=== PATIENT | female | born 1940 | race Caucasian/White ===

== ENCOUNTER 2016-07-23 12:36 | Inpatient (IN) | payer MEDICARE ==
[~2016-07-23] VITALS: Ht 167.6 cm; Wt 67.2 kg
[~2016-07-23 12:36] MED LIST: A-CILLIN500 MG; ACTONEL PO; ACTONEL35 MG PO; ACTOS30 MG PO; ACTOS45 MG PO; ACUVAIL 0.4 ML0.4 ML OPH; ATENOLOL; ATIVAN1 MG PO; DUONEB 3 MG/3 ML3 M1 INH; FOSINOPRIL10 MG PO; HUMALOG100 U/ML SC; HYDROCHLOROTHIA25 MG PO; KLORVESS,K40 MEQ/30 PO; LANTUS100 U/ML SC; LISINOPR; LISINOPRIL20 MG PO; LOPRESSOR25 MG PO; LORAZE; MAG-OX 400400 MG PO; MELLARIL10 MG PO; METFORMIN; METFORMIN1000 MG PO; NEUTRA-PHOS F1.25 GM PO; OCUFLOX 5 ML5 M1 OP; PROTONIX40 MG PO; SIMVASTATIN40 MG; SIMVASTATIN40 MG PO; SIMVASTATIN80 MG PO; UNICOMPLEX1 CAP; VICODIN 500 MG-1 TAB PO; [UNRECOGNIZED DRUG - CODE]
[2016-07-23 12:41] VITALS: BP 135/98
[2016-07-23 13:50] LABS: BASO % 0.2 % (0.0-1.0); EOS % 0.2 % (1.0-4.0); HEMATOCRIT 38.7 % (37.0-47.0); HEMOGLOBIN 12.8 g/dl (12.0-16.0); IG # 0.1 10*3/uL (0.0-0.1); LYMPH # 1.2 10*3/uL (1.3-4.4); LYMPH % 11.2 % (27.0-41.0); MEAN CELL VOLUME 91.5 fl (81.0-99.0); MEAN CORPUSCULAR HGB 30.3 pg (27.0-31.0); MEAN CORPUSCULAR HGB CONC 33.1 g/dl (33.0-37.0); MEAN PLATELET VOLUME 10.1 fl (9.6-12.3); MONO % 9.4 % (3.0-9.0); NEUT # 8.4 10*3/uL (2.3-7.9); NEUT % 78.5 % (47.0-73.0); PLATELET COUNT AUTOMATED 161 10*3/uL (130-400); RED BLOOD COUNT 4.23 10*6/uL (4.10-5.10); WHITE BLOOD COUNT 10.7 10*3/uL (4.8-10.8)
[2016-07-23 13:58] LABS: PROTHROMBIN TIME 10.6 SECONDS (9.0-12.4)
[2016-07-23 14:07] LABS: ALBUMIN 3.4 gm/dl (3.1-4.5); ALKALINE PHOSPHATASE 81 U/L (45-117); BILIRUBIN, TOTAL 0.9 mg/dl (0.2-1.0); BUN 14 mg/dl (7-24); CARBON DIOXIDE 26 mmol/L (21-32); CHLORIDE 96 mmol/L (98-107); EST GLOM FILT AFRICAN AMERICAN > 60 ml/min; GLUCOSE 207 mg/dL (65-99); MAGNESIUM 1.5 mg/dL (1.5-2.1); POTASSIUM 3.9 mmol/L (3.5-5.1); SGOT/AST 13 IU/L (3-35); SGPT/ALT 18 U/L (12-78); SODIUM 134 mmol/L (136-145); TOTAL PROTEIN 7.9 gm/dL (6.4-8.2)
[2016-07-23 14:08] LABS: TROPONIN I < 0.015 ng/ml (<0.5)
[2016-07-23 16:00] VITALS: BP 154/65
[2016-07-23 16:09] LABS: BILIRUBIN NEGATIVE (NEGATIVE); BLOOD 1+ (NEGATIVE); CLARITY CLOUDY (CLEAR); COLOR YELLOW (YELLOW); GLUCOSE 3+ (NEGATIVE); KETONE TRACE (NEGATIVE); LEUKO ESTERASE 2+ (NEGATIVE); NITRITE POSITIVE (NEGATIVE); PROTEIN TRACE (NEGATIVE); UROBILINOGEN 0.2 E.U./dl (0.2-1.0)
[2016-07-23 16:26] LABS: WBC TNTC wbc/hpf (0-5)
[2016-07-23 16:27] LABS: BACTERIA 2+; URINE REFLEX COMMENT YES (NO)
[2016-07-23 16:40] VITALS: BP 154/65
[2016-07-23] MEDS ORDERED: MELLARIL10 MG PO (17:21)
[2016-07-23 18:24] LABS: CKMB 0.5 ng/ml (0.5-3.6); CPK 51 U/L (26-192); TROPONIN I < 0.015 ng/ml (<0.5)
[2016-07-23 20:00] VITALS: BP 159/58
[2016-07-24] VITALS: BP 160/66
[2016-07-24 00:52] LABS: CKMB 0.7 ng/ml (0.5-3.6); CPK 42 U/L (26-192); TROPONIN I < 0.015 ng/ml (<0.5)
[2016-07-24 06:14] LABS: BASO % 0.2 % (0.0-1.0); EOS # 0.1 10*3/uL (0.0-0.4); EOS % 0.6 % (1.0-4.0); HEMATOCRIT 36.1 % (37.0-47.0); IG # 0.1 10*3/uL (0.0-0.1); LYMPH # 1.7 10*3/uL (1.3-4.4); LYMPH % 18.8 % (27.0-41.0); MEAN CELL VOLUME 90.5 fl (81.0-99.0); MEAN CORPUSCULAR HGB 30.1 pg (27.0-31.0); MEAN CORPUSCULAR HGB CONC 33.2 g/dl (33.0-37.0); MEAN PLATELET VOLUME 10.1 fl (9.6-12.3); MONO # 0.8 10*3/uL (0.1-1.0); MONO % 9.1 % (3.0-9.0); NEUT # 6.3 10*3/uL (2.3-7.9); NEUT % 70.7 % (47.0-73.0); PLATELET COUNT AUTOMATED 173 10*3/uL (130-400); RED BLOOD COUNT 3.99 10*6/uL (4.10-5.10); WHITE BLOOD COUNT 8.9 10*3/uL (4.8-10.8)
[2016-07-24 06:26] LABS: CKMB < 0.5 ng/ml (0.5-3.6); CPK 48 U/L (26-192); TROPONIN I < 0.015 ng/ml (<0.5)
[2016-07-24 06:39] LABS: PROTHROMBIN TIME 10.5 SECONDS (9.0-12.4)
[2016-07-24 06:53] LABS: ALKALINE PHOSPHATASE 68 U/L (45-117); BILIRUBIN, TOTAL 0.8 mg/dl (0.2-1.0); BUN 12 mg/dl (7-24); CARBON DIOXIDE 26 mmol/L (21-32); CHLORIDE 101 mmol/L (98-107); EST GLOM FILT AFRICAN AMERICAN > 60 ml/min; GLUCOSE 174 mg/dL (65-99); MAGNESIUM 1.6 mg/dL (1.5-2.1); PHOSPHOROUS 1.9 mg/dL (2.5-4.9); POTASSIUM 3.8 mmol/L (3.5-5.1); SGOT/AST 13 IU/L (3-35); SGPT/ALT 16 U/L (12-78); SODIUM 136 mmol/L (136-145)
[2016-07-24 07:29] LABS: VITAMIN D, 25-HYDROXY 20.8 ng/mL (30-100)
[2016-07-24 07:33] LABS: FOLIC ACID > 24.00 ng/mL (>5.38)
[2016-07-24 08:00] VITALS: BP 150/66
[2016-07-24 12:00] VITALS: BP 110/44
[2016-07-24 16:00] VITALS: BP 130/62
[2016-07-24 20:00] VITALS: BP 137/55
[2016-07-25] VITALS: BP 121/53
[2016-07-25 08:00] VITALS: BP 156/59
[2016-07-25 12:00] VITALS: BP 150/60
[2016-07-25] MEDS ORDERED: B121000 MCG/1 IM (15:19)
[2016-07-25] MEDS ORDERED: VITAMIN D50000 I3 PO (15:19)
[2016-07-25] MEDS ORDERED: CIPRO500 MG PO (15:21)
== END 2016-07-25 16:57 | disposition other institution (70) | DRG 638 ==
LOC: ED 12:36 → EDHOLD 15:40 → 4E 15:40
PROVIDERS: Family Medicine; Student in an Organized Health Care Education/Training Program
DX: E11.65 Type 2 diabetes mellitus with hyperglycemia (principal); N39.0 Urinary tract infection, site not specified; E44.0 Moderate protein-calorie malnutrition; E87.8 Other disorders of electrolyte and fluid balance, not elsewhere classified; E87.1 Hypo-osmolality and hyponatremia; I10 Essential (primary) hypertension; R00.0 Tachycardia, unspecified; E78.5 Hyperlipidemia, unspecified; F41.9 Anxiety disorder, unspecified; Z79.4 Long term (current) use of insulin; Z79.899 Other long term (current) drug therapy; Z90.710 Acquired absence of both cervix and uterus; Z90.5 Acquired absence of kidney; Z82.49 Family history of ischemic heart disease and other diseases of the circulatory system; Z80.9 Family history of malignant neoplasm, unspecified; Z83.6 Family history of other diseases of the respiratory system

== ENCOUNTER 2017-06-05 18:17 | Emergency (ER) | payer MEDICARE ==
[~2017-06-05] VITALS: Wt 65.8 kg
[~2017-06-05 18:17] MED LIST changes: +B121000 MCG/1 IM; +CIPRO500 MG PO; +VITAMIN D50000 I3 PO
[2017-06-05] MEDS ORDERED: CEFADROXIL500 M1 PO (20:13)
== END 2017-06-05 20:22 | disposition home or self-care (01) ==
LOC: ED 18:17
DX: S01.03XA Puncture wound without foreign body of scalp, initial encounter (principal); Z79.4 Long term (current) use of insulin; Z79.899 Other long term (current) drug therapy; Z90.710 Acquired absence of both cervix and uterus; W22.8XXA Striking against or struck by other objects, initial encounter; Y93.01 Activity, walking, marching and hiking; Y92.89 Other specified places as the place of occurrence of the external cause; Y99.8 Other external cause status

== ENCOUNTER → 2017-06-07 | Outpatient (CLI) | payer MEDICARE ==
[~2017-06-07] MED LIST changes: +CEFADROXIL500 M1 PO
== END | disposition home or self-care (01) ==
LOC: WOUNDCARE 01:52
DX: S01.80XD Unspecified open wound of other part of head, subsequent encounter (principal); E11.69 Type 2 diabetes mellitus with other specified complication; Z90.710 Acquired absence of both cervix and uterus; X58.XXXD Exposure to other specified factors, subsequent encounter

== ENCOUNTER → 2017-06-14 | Outpatient (CLI) | payer MEDICARE | LOC: WOUNDCARE 03:21 | DX: S01.03XA Puncture wound without foreign body of scalp, initial encounter (principal); E11.9 Type 2 diabetes mellitus without complications; Z90.710 Acquired absence of both cervix and uterus; W01.119A Fall on same level from slipping, tripping and stumbling with subsequent striking against unspecified sharp object, initial encounter ==

== ENCOUNTER → 2017-06-21 | Outpatient (CLI) | payer MEDICARE | END | disposition home or self-care (01) | LOC: WOUNDCARE 08:22 | DX: S01.03XD Puncture wound without foreign body of scalp, subsequent encounter (principal); E11.9 Type 2 diabetes mellitus without complications; Z90.710 Acquired absence of both cervix and uterus; W01.11 Fall on same level from slipping, tripping and stumbling with subsequent striking against sharp object ==

== ENCOUNTER → 2017-06-28 | Outpatient (CLI) | payer MEDICARE | END | disposition home or self-care (01) | LOC: WOUNDCARE 01:52 | DX: S01.03XD Puncture wound without foreign body of scalp, subsequent encounter (principal); E11.9 Type 2 diabetes mellitus without complications; Z90.710 Acquired absence of both cervix and uterus; X58.XXXD Exposure to other specified factors, subsequent encounter ==

== ENCOUNTER → 2017-07-05 | Outpatient (CLI) | payer MEDICARE | END | disposition home or self-care (01) | LOC: WOUNDCARE 01:15 | DX: S01.03XD Puncture wound without foreign body of scalp, subsequent encounter (principal); E11.9 Type 2 diabetes mellitus without complications; Z90.710 Acquired absence of both cervix and uterus; X58.XXXD Exposure to other specified factors, subsequent encounter ==

== ENCOUNTER → 2017-07-19 | Outpatient (CLI) | payer MEDICARE | END | disposition home or self-care (01) | LOC: WOUNDCARE 01:24 | DX: S01.03XD Puncture wound without foreign body of scalp, subsequent encounter (principal); E11.9 Type 2 diabetes mellitus without complications; Z90.710 Acquired absence of both cervix and uterus; W01.11 Fall on same level from slipping, tripping and stumbling with subsequent striking against sharp object ==

== ENCOUNTER 2018-08-14 21:03 | Inpatient (IN) | payer MEDICARE ==
[~2018-08-14] VITALS: Ht 154.9 cm; Wt 60.5 kg
--- NOTE | ~2018-08-14 | EKG ---
[place], [place] ELECTROCARDIOGRAM REPORT NAME: DAVIS ROME UNIT #: [id number] ROOM: 415 DOCTOR: BROWN DRAFT REPORT BIRTHDATE: [birth year] [facility] Test Date: 2018-08-14 Test Time: 23:10:16 Pat Name: DAVIS ROME Department: Room: 415 Gender: F Thermometer Maker: 50 : 1940 Requested By: AZ CAMARENA Order Number: [id number] Reading MD: Earle Cuellar MD Measurements Intervals [place] Rate: 83 P: 44 MN: 147 QRS: 43 QRSD: 76 T: 63 QT: 380 QTc: 447 Interpretive Statements Sinus rhythm No previous ECG available for comparison Electronically Signed On 08-15-2018 18:05:31 PST by Earle Cuellar MD CM:EKGRPT:ELECTROCARDIOGRAM REPORT 1805 AZ CAMARENA MD EPIPHANY DRAFT REPORT AZ CAMARENA MD
--- NOTE | ~2018-08-14 | PR ---
[place], [place] PROGRESS NOTE NAME: DAVIS ROME [facility] #: [id number] UNIT #: [id number] ROOM: 415 DOCTOR: CHIKIS BURNHAM DPM BIRTHDATE: [birth year] DOS: 08/17/2018 SUBJECTIVE: The patient was seen for followup of ulceration of distal first right toe. OBJECTIVE FINDINGS: No signs of full thickness breakdown, distal first right toe much improved. No signs of infection or erythema. ASSESSMENT: 1. Ulceration of distal first right toe, progressing well 2. Diabetes. PLAN: Evaluation and management. Continue Bactroban and DSD to right hallux and will reappoint for followup. CHIKIS BURNHAM DPM CM:JOLLY [id number] CHIKIS BURNHAM DPM 08/17/18 1135 interface
--- NOTE | ~2018-08-14 | CON ---
[place], [place] REPORT OF CONSULTATION [id number] UNIT #: [id number] ROOM: 411 DOCTOR: ARIANE PHD TRACEY BIRTHDATE: [birth year] DOS: 08/15/2018 HISTORY OF PRESENT ILLNESS: The patient is an 78-year-old female referred by the hospitalist due to dementia and confusion. She fell down the stairs with pain in her left arm, left jaw and right ribs. Per her medical record, her children are concerned about the patient's ability to manage her medications, although they do help her administer her insulin. SOCIAL HISTORY: The patient is and lives alone with her who also has dementia. She denied alcohol, tobacco and illegal drug use. PAST MEDICAL HISTORY: Anxiety, B12 deficiency, chronic sinusitis, bipolar disorder, hyperlipidemia, hypertension, retrolisthesis, schizophrenia, vitamin D deficiency. MEDICATIONS: K-Dur, Mag-Ox, Mellaril, Zocor, Lovenox, Lantus, Humalog, Zofran, Tylenol, Bactroban, Rocephin, nystatin, Polytrim, Norton 5/325, Neutra-Phos K. The patient was sitting comfortably in bed. She was awake, alert and oriented to person, place, month and year. She could name the president, gave the past president as Mauricio and could not name any current events. Mood was stable and affect was blunted. She denied symptoms of depression and anxiety. She denied suicidal and homicidal ideation, plan and intent. Speech was slow. Thought process was tangential. There were no obvious hallucinations or delusions. She did not appear to be responding to internal stimuli. Her behavior was stable and appropriate without any aggression. She remained pleasantly confused during the evaluation with short-term memory deficits noted. She also appeared to have difficulty remembering some details of her past. Insight and judgment were poor. Expressive and receptive language appeared within normal limits on a conversational basis. DIAGNOSES: Unspecified neurocognitive disorder; schizoaffective disorder, bipolar type. PLAN: In my opinion, the patient does not appear to be an appropriate candidate for the [facility] at this time. She would, however, benefit from increased supervision and support. She may find placement in a intermediate to be most beneficial given her significant cognitive deficits and recent falls. Thank you very much for this consult. [place], [place] REPORT OF CONSULTATION NAME: DAVIS ROME UNIT #: [id number] ROOM: 411 DOCTOR: ARIANE, PHD TRACEY BIRTHDATE: [birth year] Jacy Marc, PhD CM:CONSTR:REPORT OF CONSULTATION 1733 08/20/18 0826 interface
--- NOTE | ~2018-08-14 | EKG ---
[place], [place] ELECTROCARDIOGRAM REPORT NAME: DAVIS ROME UNIT #: [id number] ROOM: 411 DOCTOR: BROWN DRAFT REPORT BIRTHDATE: [birth year] [facility] Test Date: 2018-08-18 Test Time: 08:45:18 Pat Name: DAVIS ROME Department: Room: 411 Gender: F Management Scientist: Toma Oliveros : 1940 Requested By: SON MONTANA Order Number: [id number] Reading MD: Lobito Chung Measurements Intervals [place] Rate: 103 P: 35 ID: [id number] QRS: 47 QRSD: 77 T: 59 QT: 323 QTc: 423 Interpretive Statements Sinus tachycardia Atrial premature complex Compared to ECG 08/14/2018 23:10:16 Atrial premature complex(es) now present Sinus rhythm no longer present Electronically Signed On 08-23-2018 12:31:10 PST by Lobito Chung CM:EKGRPT:ELECTROCARDIOGRAM REPORT 0845 1231 SON ROCHA DRAFT REPORT SON MOTNANA DO
[2018-08-14 21:11] VITALS: BP 152/87
[2018-08-14 22:01] LABS: BASO % 0.4 % (0.0-1.0); EOS # 0.1 10*3/uL (0.0-0.4); HEMATOCRIT 38.1 % (37.0-47.0); HEMOGLOBIN 12.5 g/dl (12.0-16.0); LYMPH # 1.4 10*3/uL (1.3-4.4); MEAN CELL VOLUME 91.4 fl (81.0-99.0); MEAN CORPUSCULAR HGB CONC 32.8 g/dl (33.0-37.0); MEAN PLATELET VOLUME 10.5 fl (9.6-12.3); MONO # 0.5 10*3/uL (0.1-1.0); MONO % 5.2 % (3.0-9.0); NEUT # 7.1 10*3/uL (2.3-7.9); NEUT % 77.9 % (47.0-73.0); PLATELET COUNT AUTOMATED 247 10*3/uL (130-400); RED BLOOD COUNT 4.17 10*6/uL (4.10-5.10); RED CELL DISTRI WIDTH 12.2 % (0-14.5); WHITE BLOOD COUNT 9.2 10*3/uL (4.8-10.8)
[2018-08-14 22:11] LABS: ACT PARTIAL THROMBO TIME 22.8 SECONDS (20.8-31.5)
[2018-08-14 22:23] LABS: ALKALINE PHOSPHATASE 109 U/L (45-117); BUN 20 mg/dl (7-24); CHLORIDE 101 mmol/L (98-107); CREATININE 1.15 mg/dL (0.55-1.02); LIPASE 162 U/L (73-393); POTASSIUM 4.3 mmol/L (3.5-5.1); SGOT/AST 13 IU/L (3-35); SGPT/ALT 19 U/L (12-78); SODIUM 134 mmol/L (136-145); TOTAL PROTEIN 7.5 gm/dL (6.4-8.2)
[2018-08-14 22:28] LABS: TROPONIN I < 0.015 ng/ml (<0.045)
[2018-08-14 22:54] LABS: BILIRUBIN NEGATIVE (NEGATIVE); BLOOD NEGATIVE (NEGATIVE); CLARITY SL CLOUDY (CLEAR); COLOR YELLOW (YELLOW); GLUCOSE 3+ (NEGATIVE); KETONE NEGATIVE (NEGATIVE); LEUKO ESTERASE 1+ (NEGATIVE); NITRITE NEGATIVE (NEGATIVE); UROBILINOGEN 0.2 E.U./dl (0.2-1.0)
--- NOTE | 2018-08-14 22:59 | NUR ---
PT NOTED TO HAVE SCABBED AREA ON COCCYX AND ECCHYMOSIS NOTED TO RIGHT UPPER AND LOWER BACK.
--- NOTE | 2018-08-14 23:00 | NUR ---
NURSE REPORT GIVEN TO THIS RN FROM LIANA BLANKENSHIP.
[2018-08-14 23:11] LABS: BACTERIA 1+; WBC TNTC wbc/hpf (0-5)
[2018-08-14] MEDS ORDERED: BASAG SOL SQ (23:56)
[2018-08-15] VITALS (7 sets, daily range): BP systolic 122–150; BP diastolic 55–86
--- NOTE | 2018-08-15 02:27 | NUR ---
CRITICAL LAB- LACTIC ACID IS 2.3. DR CHARLES NOTIFIED..
--- NOTE | 2018-08-15 02:36 | NUR ---
A 78, admitted to 4E, under the services of [facility] Fleming DO with a diagnosis of UTI, FALL AT HOME, CONJUNCTIVITS, CONTUSION R SCAPULA. Chief complaint is FALL. Patient arrived via BED from ER. Monitor applied. Initial assessment completed. Vital signs taken and recorded. [facility] FLEMING DO notified of admission to the unit. Orders received. See assessment for past medical history, medications and allergies. Patient and/or family oriented to unit. [facility] visitation policy reviewed. Clothing/patient valuable form completed. JONATHAN PANG
--- NOTE | 2018-08-15 05:54 | NUR ---
DR BEAVER NOTIFIED OF PODIATRY CONSULT. STATES PODIATRY TEAM WILL SEE PATIENT AROUND LUNCH TIME TODAY. NO FURTHER ORDERS AT THIS TIME.
[2018-08-15 06:23] LABS: ALBUMIN 2.8 gm/dl (3.1-4.5); BUN 17 mg/dl (7-24); CHLORIDE 103 mmol/L (98-107); PHOSPHOROUS 2.2 mg/dL (2.5-4.9); POTASSIUM 4.5 mmol/L (3.5-5.1); SGOT/AST 17 IU/L (3-35); SGPT/ALT 18 U/L (12-78); SODIUM 136 mmol/L (136-145); TOTAL PROTEIN 6.8 gm/dL (6.4-8.2)
[2018-08-15 06:29] LABS: ALKALINE PHOSPHATASE 106 U/L (45-117); FREE T4 1.01 ng/dl (0.76-1.46)
--- NOTE | 2018-08-15 07:27 | NUR ---
ROMEDAVIS HAMMER [id number] Please refer to the physician's history and physical for past medical history, comorbid conditions, and allergies. Diagnosis: UTI FALL AT HOME CONJUNCTIVITIS CONTUSION OF R Christian Score: 16,AT RISK WOUND DESCRIPTIONS: Location of the wound: tip of right great toe Type of wound: unstageable Thickness: Full Size: 1.2cm x 1.3cm x <0.1cm Tunneling: none Undermining: none Sinus Tract: none Presence of Exudate: Amount: None Color: Brown Odor: None Periwound Skin Appearance: Normal Wound edges: approximated Pain (associated with wound): none at time of assessment How does patient state this happened? pt unable to state how this happened pt was complaining of discomfort to the area below the 2nd toe. No open areas noted at this time. Bilateral feet are extremely dry and flaky at time of assessment. Location of the wound: right buttocks Type of wound: unstageable Thickness: Full Size: 0.5cm x 0.8cm x <0.1cm Tunneling: none Undermining: none Sinus Tract: none Presence of Exudate: Amount: None Color: Yellow Odor: None Periwound Skin Appearance: Normal Wound edges: closed Pain (associated with wound): none at time of assessment How does patient state this happened? pt unable to state how this happened Bilateral heels are red and blanchable at time of assessment. Right breast has red satellite lesions noted. Musty odor noted. No drainage at time of assessment. Surface the patient is resting on: Position Pro SKIN PREVENTION RECOMMENDATION: 1. Pressure redistribution support surface as appropriate 2. Elevate heels 3. Remove boots/TEDS every shift and reapply 4. Head of bed 30 degrees as tolerated 5. Assess nutrition and hydration 6. Manage moisture 7. Avoid the use of containment devices while in bed 8. Use absorptive products on surfaces limit layers of linens on bed 9. Turn and reposition every 1-2 hours in bed and every 1 hour in chair as tolerated 10. Weight shifts every 15 minutes while up in chair 11. Offloading with pillows or device to keep heels elevated off bed 12. Monitor skin at least every shift 13. Inspect under medical devices twice a day WOUND TREATMENT RECOMMENDATIONS: Unstageable guidelines to tip of right great toe: Apply sureprep to right great toe allow time to dry then cover with bandaid. Consult podiatry for toenail care and area to tip of right great toe. Cleanse BLE's with soap and water and apply lac-hydrin BID. Cleanse right breast with soap and water and apply nystatin powder every 12 hours. Full thickness guidelines: Cleanse right buttocks with nss and apply sureprep around the wound therahoney to wound bed and cover with optifoam gentle. Consult Ericka Peguero BATHING SUIT MAKER-BC for possible debridement of right buttocks. Heel raiser pro boots while in bed, Wheelchair cushion when oob.
--- NOTE | 2018-08-15 09:00 | NUR ---
Solution Mixer in to talk to patient. Patient states lives at home with . There are few steps in the home. Physician: boy hernandez Pharmacy: [facility] Home health services: none Patient's level of ADLs: MINIMAL ASSIST Patient has working utilities: all working DME: none Follow-up physician's appointment after d/c: will be made by hospitalist nurse director upon discharge Does patient want to access PORTAL?: no Discharge plan discussed with patient, present, patient lives at home with , both she and had a fall at home, discussed with her a short term prison for rehab prior to going back home, patient was in agreement with this, given choice of facilities, she chose [facility], life care planner will send referral to [facility] for when patient is medically stable for discharge. BERNICE MARX
--- NOTE | 2018-08-15 10:30 | NUR ---
Dr. Livingston notified of wound care orders needed.
--- NOTE | 2018-08-15 11:17 | NUR ---
Occupational Therapy evaluation completed on 4 with full eval to follow. Precautions include fall risk;bed alarm, fall history, impaired cognition, patient is high complexity level 66215 via chart review, testing and evaluation. Recommend OT per POC and / assist and SNF to enable max ability to function. Thank you for this referral. Bernie Irizarry OTR/L
--- NOTE | 2018-08-15 11:48 | NUR ---
PHYSICAL THERAPY PAtient evalauted on 4, full evaluation to follow. Continue with PT as per plan of care with fall, mod (A), alarm and signfiicant dementia with decreased safety awareness precautions. Will require SNF. Patient is high complexity via chart review, tests and evaluation: 14335. Thank you for this referral. Neha Nova,PT
--- NOTE | 2018-08-15 16:32 | NUR ---
PER PSYCH CONSULT THE PATIENT IS NOT APPROPRIATE FOR THE U, BUT WOULD BENEFIT AT [facility].
[2018-08-16] VITALS: BP 161/76
[2018-08-16 04:00] VITALS: BP 152/73
--- NOTE | 2018-08-16 04:19 | NUR ---
Recommend follow up for wound care in outpatient setting patient being discharge to another facility at this time.
[2018-08-16 06:11] LABS: BASO # 0.1 10*3/uL (0.0-0.1); BASO % 0.7 % (0.0-1.0); EOS # 0.2 10*3/uL (0.0-0.4); HEMATOCRIT 37.8 % (37.0-47.0); HEMOGLOBIN 12.3 g/dl (12.0-16.0); LYMPH # 1.8 10*3/uL (1.3-4.4); LYMPH % 23.6 % (27.0-41.0); MEAN CELL VOLUME 91.7 fl (81.0-99.0); MEAN CORPUSCULAR HGB 29.9 pg (27.0-31.0); MEAN CORPUSCULAR HGB CONC 32.5 g/dl (33.0-37.0); MEAN PLATELET VOLUME 10.9 fl (9.6-12.3); MONO # 0.6 10*3/uL (0.1-1.0); MONO % 7.7 % (3.0-9.0); NEUT # 4.9 10*3/uL (2.3-7.9); NEUT % 65.5 % (47.0-73.0); PLATELET COUNT AUTOMATED 256 10*3/uL (130-400); RED BLOOD COUNT 4.12 10*6/uL (4.10-5.10); RED CELL DISTRI WIDTH 12.2 % (0-14.5); WHITE BLOOD COUNT 7.5 10*3/uL (4.8-10.8)
[2018-08-16 06:31] LABS: BUN 12 mg/dl (7-24); CHLORIDE 102 mmol/L (98-107); POTASSIUM 4.2 mmol/L (3.5-5.1); SODIUM 135 mmol/L (136-145)
[2018-08-16 06:32] LABS: PHOSPHOROUS 2.8 mg/dL (2.5-4.9)
--- NOTE | 2018-08-16 07:44 | NUR ---
Spoke with Dr. Ireland regarding a consult for Ericka Peguero [facility] stated he will take care of it
--- NOTE | 2018-08-16 07:46 | NUR ---
OT NOTE PATIENT SEEN 1:1 OT THIS DATE. PATIENT COMPLETED 10 MINUTES OF OT THIS AM. COMPLETED BED MOBILITY SUPINE TO SIT EOB CGA USE RAIL AND MIN VERBAL CUES SAFETY. COMPLETED SIT BALANCE EOB CGA WITH FAIR+ TOLERANCE COMPLETING REACHING ACTIVITY. COMPLETED SIT TO STAND FROM BED CGA X 5 WITH MIN VERBAL CUES SAFETY. PATIENT COMPLETED SIT TO SUPINE CGA USE RAIL. BED ALARM INTACT AND CALL LIGHT WITHIN REACH. CONTINUE TOWARDS PLAN OF CARE. TAJ MUELLER/ Alfreda
[2018-08-16 08:00] VITALS: BP 140/82
--- NOTE | 2018-08-16 08:28 | NUR ---
PATIENT WAS VERY ALERT AND WILL TO TALK. STATED HER WAS TOLD TO GO DOWN STEPS BACKWORD AND THAT WAS WHAT THEY WERE DOING WHEN THEY FEEL. BRK WAS ORDERED, PT RESTING WATCHING TV WHILE WAITING FOR BRK. KUNAL MORACC
--- NOTE | 2018-08-16 09:37 | NUR ---
NOTIFIED WOUND CARE OF NEW CONSULT.
--- NOTE | 2018-08-16 09:37 | NUR ---
NOTIFIED DR. GODOY OF URINE CULTURE RESULTS
--- NOTE | 2018-08-16 09:59 | NUR ---
PHYSICAL THERAPY NURSING STUDENTS IN WITH PATIENT AT THIS TIME. WILL CHECK BACK LATER. CAROLINE RASCON COMMISSARY ASSISTANT
--- NOTE | 2018-08-16 10:57 | NUR ---
PT ATE 100% BRK WAS GIVEN BED BATH AND BEDDING WAS CHANGED. PT BRUSHED OWN TEETH AND PERFORMED MOST ADL ON HER OWN. PT WATCHING TV IN BED. KUNAL CASTRO SPTAINACC
--- NOTE | 2018-08-16 11:11 | NUR ---
patient referral faxed to [facility], patient accepted, hospital exemption completed, precerted started, waiting on auth.
[2018-08-16 12:00] VITALS: BP 143/82
--- NOTE | 2018-08-16 12:25 | NUR ---
PT WAS GIVEN 3 UNITS OF COVERAGE. LUNCH WAS ORDERED PT HAD MED PERCY CASTRO [facility]
--- NOTE | 2018-08-16 13:01 | NUR ---
PHYSICAL THERAPY Patient taken to restroom by PCT. WILL CHECK BACK LATER. CAROLINE RASCON [employer]
--- NOTE | 2018-08-16 14:55 | NUR ---
PHYSICAL THERAPY Patient presented to therapy in supine with head of bed elevated and report of no pain or other complaints. Patient is very confused, much more so than her , who is in the same room as this patient. Patient agrees to treatment session. Patient was identified by name and . Patient performed supine to sitting at EOB with MIN A X 1. Patient transferred STS with MIN A X 1. Patient ambulated with W/W and CGA X 1 for 150' x 1 with verbal cues for keeping on task, upright posture, and directional cues. Patient sat on EOB and performed seated bilateral LE ther ex 2 x 10 reps each in all planes of movement for strengthening the LEs ,in order to improve patient's functional mobility. Patient transferred back to supine in bed with MIN A X 1. Patient is extremely confused. Patient was left in supine with head of bed elevated, call light within reach, and bed alarm activated. Patient was 1:1 with this LIEUTENANT GENERAL for 24 minutes total. CAROLINE RASCON LIEUTENANT GENERAL
[2018-08-16 16:00] VITALS: BP 147/59
[2018-08-16 20:00] VITALS: BP 133/57
[2018-08-17] VITALS: BP 132/63
--- NOTE | 2018-08-17 10:00 | NUR ---
PATIENT VERY CONFUSED TODAY. PATIENT IS OTHERWISE FEELING FINE. LUNGS ARE CLEAR. BSX4 QUADS, NO EDEMA. PATIENT DENIES ANY NEEDS AND TOOK MEDS WITH MINIMAL ASSIST. SHE ATE 100% OF HER BREAKFAST.
[2018-08-17 12:00] VITALS: BP 144/67
[2018-08-17 16:00] VITALS: BP 154/76
--- NOTE | 2018-08-17 19:00 | NUR ---
PATIENT RESTING IN BED WITH NO NEEDS MADE. SON AT BEDSIDE. BED ALARM ON, BED IN LOWEST POSITION, CALL LIGHT IN REACH
[2018-08-17 20:00] VITALS: BP 160/79
--- NOTE | 2018-08-17 20:45 | NUR ---
24 HR chart check completed.
[2018-08-18] VITALS: BP 134/79
[2018-08-18 08:00] VITALS: BP 142/54
--- NOTE | 2018-08-18 08:43 | NUR ---
CALLED TO ROOM FOR PATIENT HAVING A SEIZURE. PRESENT IN ROOM DURING SEIZURE. PATIENT PLACED ON MOTOR INSTALLER. PATIENT'S SEIZURE BROKE AFTER ABOUT 60-90 SECONDS. IV ATIVAN WAS ADMINISTERED PER 'S ORDER AND RAPID RESPONSE WAS CALLED. PATIENT IMMEDIATELY FELL ASLEEP FOLLOWING SEIZURE. STRIP DOCUMENTED IN CHART
[2018-08-18 09:08] LABS: ABG HCO3 17.5 mmol/l (22-26); ABG O2 SATURATION 99.6 % (95-97); ARTERIAL BLOOD GAS PCO2 38.2 mmHg (35-45); ARTERIAL BLOOD GAS PH 7.282 (7.35-7.45)
[2018-08-18 09:09] LABS: ABG BASE EXCESS -8.3 mmol/L (-2.0-2.0)
[2018-08-18 09:10] LABS: BASO # 0.1 10*3/uL (0.0-0.1); BASO % 0.6 % (0.0-1.0); EOS # 0.1 10*3/uL (0.0-0.4); EOS % 0.5 % (1.0-4.0); HEMATOCRIT 45.2 % (37.0-47.0); HEMOGLOBIN 13.8 g/dl (12.0-16.0); LYMPH # 2.7 10*3/uL (1.3-4.4); LYMPH % 20.9 % (27.0-41.0); MEAN CELL VOLUME 95.4 fl (81.0-99.0); MEAN CORPUSCULAR HGB 29.1 pg (27.0-31.0); MEAN CORPUSCULAR HGB CONC 30.5 g/dl (33.0-37.0); MEAN PLATELET VOLUME 10.3 fl (9.6-12.3); MONO # 0.8 10*3/uL (0.1-1.0); MONO % 6.2 % (3.0-9.0); NEUT # 9.2 10*3/uL (2.3-7.9); NEUT % 70.9 % (47.0-73.0); PLATELET COUNT AUTOMATED 315 10*3/uL (130-400); RED BLOOD COUNT 4.74 10*6/uL (4.10-5.10); RED CELL DISTRI WIDTH 12.2 % (0-14.5)
[2018-08-18 09:19] LABS: ALBUMIN 3.2 gm/dl (3.1-4.5); ALKALINE PHOSPHATASE 115 U/L (45-117); BUN 16 mg/dl (7-24); CHLORIDE 99 mmol/L (98-107); CREATININE 1.23 mg/dL (0.55-1.02); POTASSIUM 3.8 mmol/L (3.5-5.1); SGOT/AST 18 IU/L (3-35); SGPT/ALT 21 U/L (12-78); SODIUM 134 mmol/L (136-145); TOTAL PROTEIN 8.2 gm/dL (6.4-8.2)
[2018-08-18 09:23] LABS: TROPONIN I < 0.015 ng/ml (<0.045)
[2018-08-18 12:00] VITALS: BP 153/74
[2018-08-18 16:00] VITALS: BP 129/70
--- NOTE | 2018-08-18 19:11 | NUR ---
SITTING IN CHAIR AT BEDSIDE WATCHING TV. NO NEEDS MADE. BODY ALARM ON, CALL LIGHT IN REACH
--- NOTE | 2018-08-18 19:58 | NUR ---
24 HR chart check completed.
[2018-08-18 20:00] VITALS: BP 133/88
[2018-08-19] VITALS: BP 152/60
--- NOTE | 2018-08-19 01:08 | NUR ---
PATIENT RESTING IN BED WITH EYES CLOSED. RESPS EASY AND REGULAR. BED IN LOWEST POSITION, CALL LIGHT IN REACH, BED ALARM ON
[2018-08-19 06:26] LABS: BUN 15 mg/dl (7-24); CHLORIDE 99 mmol/L (98-107); CREATININE 0.84 mg/dL (0.55-1.02); SODIUM 133 mmol/L (136-145)
[2018-08-19 08:00] VITALS: BP 114/68
--- NOTE | 2018-08-19 09:00 | NUR ---
case management visits with patient, [facility] when medically stable
--- NOTE | 2018-08-19 09:18 | NUR ---
OT NOTE Pt was seen this A.M. 1:1 for 15 minute OT session. Upon arrival pt was sitting upright in recliner, pt identified by name and . Pt had no complaints at this time. While sitting in recliner pt donned B socks with SBA. Pt completed sit to stand transfer from chair level with Racquel and required education on proper hand placement for increased I and improved performance. Functional mobility completed into the bathroom with Racquel due to assist with walker navigation in tight spaces. Throughout pt required verbal and visual prompts due to poor safety awareness and poor walker safety. Educated pt on importance of slowing down due to being impuslive increasing risk of falls and staying closer to the walker. There she transferred on/off standard commode with CGA and use of grab bar. She then stood sink side while washing her hands and face with CGA after set-up of task. Pt had two LOB that occured throughout, one while vision was cut causing LOB backwards that required Racquel to correct and one while reaching to far out in front requiring Racquel to correct. Educated pt on importance of staying within safe reaching distance. Pt then brushed her hair with CGA. While in the bathroom pt required cosntant verbal prompts for using the walker due to walking away without it. She returned to recliner where she was left sitting upright with call light in hand, tray table in place, and body alarm on for safety. Continue with rec D/C plan to SNF. AMI Mcmahan/Alfreda
--- NOTE | 2018-08-19 10:08 | NUR ---
PHYSICAL THERAPY Patient presented to therapy in sitting position with chair alarm attached. Patient agrees to therapy session. Patient was identified by name and . Patient performed STS transfer with MIN A X 1. Patient ambulated with W/W and CGA X 1 for 50 ' x 1 with verbal cues for staying close to walker and safe turns. Patient turned safely with W/W without LOB. Patient performed seated ther ex x 20 reps in all planes of movement for strengthening the LEs in order to improve patient's functional mobility. Patient was left in sitting position in bed side chair with chair alarm attached, call light within reach, and tray table in front of patient with breakfast. Patient was 1:1 with this PIPE MAKER for 23 minutes total. CAROLINE RASCON PIPE MAKER
[2018-08-19] MEDS ORDERED: Humalog SQ (10:49)
[2018-08-19] MEDS ORDERED: VITAMIN D32000 UNI1 PO (10:49)
[2018-08-19] MEDS ORDERED: LOPRESSOR25 MG PO (10:53)
[2018-08-19] MEDS ORDERED: TYLENOL325 M2 PO (10:53)
[2018-08-19] MEDS ORDERED: MAGNESIUM OXID400 MG PO (10:53)
[2018-08-19] MEDS ORDERED: Bactroban Oint22 GM T (10:53)
[2018-08-19] MEDS ORDERED: ATIVAN1 MG PO (10:57)
--- NOTE | 2018-08-19 11:38 | NUR ---
Patient is discharged to [facility], transportation scheduled for noon with [facility] ambulette, agents' records clerk and nursing aware
--- NOTE | 2018-08-19 12:15 | NUR ---
[facility] TRANSPORT TO P/U PATIENT.
--- NOTE | 2018-08-19 12:15 | NUR ---
Discharge instructions reviewed with patient. Patient receptive and verbalizes understanding. Follow-up care arranged. Written instructions given to patient. IV CATH REMOVED, CARDIAC MONIOTR COLLECTED AND ACCOUNTED FOR. PATIENT REFUSED DISCHARG PHOTOS OF WOUNDS, STATED "YOU ARE NOT TAKING PICTURES OF ME." EVE MEREDITH
--- NOTE | 2018-08-19 12:30 | NUR ---
CHUN-NURSE REPORT GIVEN TO [facility].
--- NOTE | 2018-08-19 15:50 | NUR ---
PHYSICAL THERAPY CO-SIGN I approve of the Phyical Therapy notes written above. BEN HINOJOSA PT
--- NOTE | 2018-08-19 15:58 | NUR ---
OCCUPATIONAL THERAPY CO-SIGN I approve of the Occupational Therapy notes written above. CHANDANA GARDNER OTR/Alfreda
== END 2018-08-19 12:15 | disposition other institution (70) | DRG 682 ==
LOC: ED 21:03 → 4E 08-15 00:13 → EDHOLD 08-15 00:13 → 4E 08-15 00:34
PROVIDERS: Emergency Medicine Emergency Medical Services; Family Medicine; Internal Medicine; Internal Medicine Nephrology; ADMIT Internal Medicine
PROC: 0HBRXZZ Excision of Toe Nail, External Approach (ICD-10-PCS; principal; 2018-08-15)
PROC: 0JDQ3ZZ Extraction of Right Foot Subcutaneous Tissue and Fascia, Percutaneous Approach (ICD-10-PCS; 2018-08-15)
DX: N17.0 Acute kidney failure with tubular necrosis (principal); G93.41 Metabolic encephalopathy; E43 Unspecified severe protein-calorie malnutrition; N39.0 Urinary tract infection, site not specified; E87.2 Acidosis; E87.1 Hypo-osmolality and hyponatremia; H10.9 Unspecified conjunctivitis; R29.6 Repeated falls; I65.22 Occlusion and stenosis of left carotid artery; F41.9 Anxiety disorder, unspecified; J32.9 Chronic sinusitis, unspecified; R79.82 Elevated C-reactive protein (CRP); I10 Essential (primary) hypertension; L97.519 Non-pressure chronic ulcer of other part of right foot with unspecified severity; E11.621 Type 2 diabetes mellitus with foot ulcer; E78.5 Hyperlipidemia, unspecified; E11.65 Type 2 diabetes mellitus with hyperglycemia; L89.312 Pressure ulcer of right buttock, stage 2; F25.0 Schizoaffective disorder, bipolar type; R56.9 Unspecified convulsions; S40.011A Contusion of right shoulder, initial encounter; R41.9 Unspecified symptoms and signs involving cognitive functions and awareness; F03.90 Unspecified dementia, unspecified severity, without behavioral disturbance, psychotic disturbance, mood disturbance, and anxiety; B35.1 Tinea unguium; W10.9XXA Fall (on) (from) unspecified stairs and steps, initial encounter; Y93.89 Activity, other specified; Y92.098 Other place in other non-institutional residence as the place of occurrence of the external cause; Y99.8 Other external cause status; Z79.4 Long term (current) use of insulin; Z87.440 Personal history of urinary (tract) infections; Z90.710 Acquired absence of both cervix and uterus; Z90.5 Acquired absence of kidney; Z82.49 Family history of ischemic heart disease and other diseases of the circulatory system; Z84.89 Family history of other specified conditions; Z80.9 Family history of malignant neoplasm, unspecified; Z79.899 Other long term (current) drug therapy; Z82.0 Family history of epilepsy and other diseases of the nervous system; Z68.25 Body mass index [BMI] 25.0-25.9, adult

== ENCOUNTER 2019-07-06 09:18 | Emergency (ER) | payer MEDICARE ==
[~2019-07-06 09:18] MED LIST changes: +BASAG SOL SQ; +Bactroban Oint22 GM T; +Humalog SQ; +MAGNESIUM OXID400 MG PO; +TYLENOL325 M2 PO; +VITAMIN D32000 UNI1 PO
[2019-07-06 10:25] LABS: HEMATOCRIT 39.9 % (37.0-47.0); HEMOGLOBIN 12.8 g/dl (12.0-16.0); MEAN CELL VOLUME 88.9 fl (81.0-99.0); MEAN CORPUSCULAR HGB 28.5 pg (27.0-31.0); MEAN CORPUSCULAR HGB CONC 32.1 g/dl (33.0-37.0); MEAN PLATELET VOLUME 10.4 fl (9.6-12.3); PLATELET COUNT AUTOMATED 220 10*3/uL (130-400); RED BLOOD COUNT 4.49 10*6/uL (4.10-5.10); RED CELL DISTRI WIDTH 12.4 % (0-14.5); WHITE BLOOD COUNT 14.2 10*3/uL (4.8-10.8)
[2019-07-06 10:40] LABS: ALBUMIN 3.4 gm/dl (3.1-4.5); ALKALINE PHOSPHATASE 107 U/L (45-117); BUN 17 mg/dl (7-24); CHLORIDE 101 mmol/L (98-107); CPK 492 U/L (26-192); LIPASE 113 U/L (73-393); POTASSIUM 4.3 mmol/L (3.5-5.1); SGOT/AST 32 IU/L (3-35); SGPT/ALT 26 U/L (12-78); SODIUM 135 mmol/L (136-145); TOTAL PROTEIN 8.4 gm/dL (6.4-8.2)
[2019-07-06 10:44] LABS: TROPONIN I < 0.015 ng/ml (<0.045)
[2019-07-06 10:46] LABS: CKMB 5.2 ng/ml (0.5-3.6)
[2019-07-06 10:47] LABS: PLATELET SUFFICIENCY NORMAL (NORMAL); TOTAL CELLS COUNTED 100 #CELLS
== END 2019-07-06 12:00 | disposition short-term general hospital (02) ==
LOC: ED 09:18
PROVIDERS: Nurse Practitioner Family
DX: S06.5X0A Traumatic subdural hemorrhage without loss of consciousness, initial encounter (principal); N17.9 Acute kidney failure, unspecified; M25.551 Pain in right hip; M25.552 Pain in left hip; R10.9 Unspecified abdominal pain; M54.2 Cervicalgia; E78.5 Hyperlipidemia, unspecified; I10 Essential (primary) hypertension; E11.9 Type 2 diabetes mellitus without complications; Z79.899 Other long term (current) drug therapy; W18.39XA Other fall on same level, initial encounter; Y93.89 Activity, other specified; Y92.89 Other specified places as the place of occurrence of the external cause; Y99.8 Other external cause status

== ENCOUNTER 2020-06-09 19:03 | Emergency (ER) | payer MEDICARE ==
[2020-06-09 19:47] LABS: BASO % 0.4 % (0.0-1.0); EOS # 0.1 10*3/uL (0.0-0.4); HEMATOCRIT 40.8 % (37.0-47.0); LYMPH # 1.9 10*3/uL (1.3-4.4); LYMPH % 17.4 % (27.0-41.0); MEAN CELL VOLUME 91.1 fl (81.0-99.0); MEAN CORPUSCULAR HGB 28.8 pg (27.0-31.0); MEAN CORPUSCULAR HGB CONC 31.6 g/dl (33.0-37.0); MEAN PLATELET VOLUME 10.3 fl (9.6-12.3); MONO # 0.9 10*3/uL (0.1-1.0); MONO % 8.4 % (3.0-9.0); NEUT # 7.8 10*3/uL (2.3-7.9); NEUT % 72.5 % (47.0-73.0); PLATELET COUNT AUTOMATED 228 10*3/uL (130-400); RED BLOOD COUNT 4.48 10*6/uL (4.10-5.10); RED CELL DISTRI WIDTH 12.8 % (0-14.5); WHITE BLOOD COUNT 10.7 10*3/uL (4.8-10.8)
[2020-06-09 20:05] LABS: ALBUMIN 3.4 gm/dl (3.1-4.5); CREATININE 1.32 mg/dL (0.55-1.02); POTASSIUM 4.5 mmol/L (3.5-5.1); TOTAL PROTEIN 7.7 gm/dL (6.4-8.2)
[2020-06-09 20:58] LABS: BILIRUBIN Negative (Negative); BLOOD Trace-Lysed (Negative); CLARITY Turbid (Clear); COLOR Yellow (Yellow); GLUCOSE Negative (Negative); KETONE 1+ (Negative); LEUKO ESTERASE 3+ (Negative); NITRITE Positive (Negative); SPECIFIC GRAVITY 1.025 (1.001-1.030)
[2020-06-09] MEDS ORDERED: CEFUROXIME AXE250 MG PO ×2 (21:22)
[2020-06-09 21:30] LABS: WBC TNTC wbc/hpf (0-5)
[2020-06-09 21:31] LABS: BACTERIA 3+; RBC 0-2 rbc/hpf (0-2)
== END 2020-06-09 22:21 | disposition home or self-care (01) ==
LOC: ED 19:03
PROVIDERS: Student in an Organized Health Care Education/Training Program
DX: N39.0 Urinary tract infection, site not specified (principal); Z79.899 Other long term (current) drug therapy; W19.XXXA Unspecified fall, initial encounter; Y93.89 Activity, other specified; Y92.89 Other specified places as the place of occurrence of the external cause; Y99.8 Other external cause status

== ENCOUNTER 2020-06-14 20:26 | Inpatient (IN) | payer MEDICARE ==
[~2020-06-14] VITALS: Ht 165.1 cm; Wt 72.1 kg
[~2020-06-14 20:26] MED LIST changes: +CEFUROXIME AXE250 MG PO
[2020-06-14 20:42] VITALS: BP 142/36
--- NOTE | 2020-06-14 20:50 | NUR ---
AKLA BAH FROM [facility] CALLED TO CLARIFY WHAT HAPPENED. STATES THAT PT DID NOT HAVE ANY SHARP OBJECTS BUT JUST THREATENED TO GATHER THEM. RN ALSO STATES THAT PT 2 MONTHS AGO AND PT HAS BEEN WELL SINCE UNTIL 2 DAYS AGO WHEN BEHAVIORS BEGAN AGAIN. RN WAS UNABLE TO TELL THIS RN IF PT IS CURRENTLY ON ABX FOR UTI.
[2020-06-14 21:08] LABS: BASO # 0.1 10*3/uL (0.0-0.1); BASO % 0.6 % (0.0-1.0); EOS # 0.3 10*3/uL (0.0-0.4); EOS % 3.8 % (1.0-4.0); HEMATOCRIT 35.9 % (37.0-47.0); LYMPH # 1.9 10*3/uL (1.3-4.4); LYMPH % 23.3 % (27.0-41.0); MEAN CELL VOLUME 90.9 fl (81.0-99.0); MEAN CORPUSCULAR HGB 28.6 pg (27.0-31.0); MEAN CORPUSCULAR HGB CONC 31.5 g/dl (33.0-37.0); MEAN PLATELET VOLUME 10.6 fl (9.6-12.3); MONO # 0.6 10*3/uL (0.1-1.0); NEUT # 5.1 10*3/uL (2.3-7.9); NEUT % 63.8 % (47.0-73.0); PLATELET COUNT AUTOMATED 205 10*3/uL (130-400); RED BLOOD COUNT 3.95 10*6/uL (4.10-5.10); RED CELL DISTRI WIDTH 12.9 % (0-14.5)
[2020-06-14 21:26] LABS: ALBUMIN 2.9 gm/dl (3.1-4.5); ALKALINE PHOSPHATASE 107 U/L (45-117); BUN 14 mg/dl (7-24); CHLORIDE 103 mmol/L (98-107); CREATININE 0.99 mg/dL (0.55-1.02); SGOT/AST 19 IU/L (3-35); SGPT/ALT 7 U/L (12-78); SODIUM 135 mmol/L (136-145); TOTAL PROTEIN 6.9 gm/dL (6.4-8.2)
[2020-06-14 21:28] LABS: ACETAMINOPHEN (TYLENOL) < 5.0 ug/ml (10-30); ETHYL ALCOHOL < 3.0 mg/dl (<3)
--- NOTE | 2020-06-14 22:07 | NUR ---
SCANNER IN ROOM NOT WORKING AT THIS TIME. PT VERIFIED NAME AND FOR MEDICATION.
[2020-06-14 23:52] LABS: BILIRUBIN Negative (Negative); BLOOD Negative (Negative); CLARITY Cloudy (Clear); COLOR Yellow (Yellow); GLUCOSE 3+ (Negative); KETONE Trace (Negative); LEUKO ESTERASE 2+ (Negative); NITRITE Negative (Negative); SPECIFIC GRAVITY 1.025 (1.001-1.030)
[2020-06-15] LABS: URINE AMPHETAMINES < 1000 (1000ng/ml); URINE BARBITURATES < 200 (200ng/ml); URINE BENZODIAZEPINES < 200 (200ng/ml); URINE CANNABINOIDS (THC) < 50 (50ng/ml); URINE COCAINE < 300 (300ng/ml); URINE METHADONE < 300 (300ng/ml); URINE OPIATES < 300 (300ng/ml)
[2020-06-15 00:03] LABS: URINE PHENCYCLIDINE < 25 (25ng/ml)
[2020-06-15 00:17] LABS: BACTERIA 2+; WBC 16-20 wbc/hpf (0-5)
--- NOTE | 2020-06-15 03:53 | NUR ---
PT LAYING ON COT AT THIS TIME. BED RAILS X2. CALL LIGHT WITHIN REACH. WILL CONITINUE TO MONITOR.
[2020-06-15] MEDS ORDERED: MAGNESIUM250 M2 PO (03:59)
[2020-06-15] MEDS ORDERED: Sinemet Cr 50/21 TAB PO (04:02)
[2020-06-15] MEDS ORDERED: POTASSIUM CHLO20 ME4 PO (04:04)
[2020-06-15] MEDS ORDERED: OMEPRAZOLE MAGN20 MG PO (04:05)
[2020-06-15] MEDS ORDERED: ATORVASTATIN CA20 M1 PO (04:06)
[2020-06-15] MEDS ORDERED: METOPROLOL25 MG PO (04:06)
[2020-06-15] MEDS ORDERED: RIVASTIGMINE TAR6 M1 PO (04:07)
[2020-06-15] MEDS ORDERED: JANUVIA100 MG PO (04:07)
[2020-06-15] MEDS ORDERED: THIORIDAZINE HC10 MG PO (04:08)
[2020-06-15] MEDS ORDERED: VITAMIN D PO (04:12)
[2020-06-15] MEDS ORDERED: VITAMIN B121000 MC1 PO (04:13)
[2020-06-15] MEDS ORDERED: NOVOLOG FL100 UNIT/2 SC (04:15)
[2020-06-15] MEDS ORDERED: BASAG SOL SC (04:17)
--- NOTE | 2020-06-15 05:43 | NUR ---
PT LAYING ON COT AT THIS TIME. LIGHTS OFF. PT STATES SHE WANTS DOOR OPEN AT THIS TIME. NO DISTRESS NOTED. WILL CONTINUE TO MONITOR.
[2020-06-15 06:05] LABS: BUN 12 mg/dl (7-24); CHLORIDE 107 mmol/L (98-107); CHOLESTEROL 124 mg/dL (<200); CREATININE 0.79 mg/dL (0.55-1.02); FREE T4 0.99 ng/dl (0.76-1.46); HDL CHOLESTEROL 67 mg/dl (40-60); LDL CHOLESTEROL 42 mg/dL (9-159); POTASSIUM 3.9 mmol/L (3.5-5.1); SODIUM 139 mmol/L (136-145); TRIGLYCERIDES 75 mg/dl (<150); VLDL CHOLESTEROL 15 mg/dL (6-40)
[2020-06-15 06:09] VITALS: BP 149/69
[2020-06-15 06:10] LABS: BASO # 0.1 10*3/uL (0.0-0.1); BASO % 0.7 % (0.0-1.0); EOS # 0.4 10*3/uL (0.0-0.4); EOS % 4.9 % (1.0-4.0); HEMATOCRIT 36.5 % (37.0-47.0); LYMPH # 2.1 10*3/uL (1.3-4.4); LYMPH % 28.3 % (27.0-41.0); MEAN CELL VOLUME 91.9 fl (81.0-99.0); MEAN CORPUSCULAR HGB 28.5 pg (27.0-31.0); MEAN PLATELET VOLUME 11.8 fl (9.6-12.3); MONO # 0.7 10*3/uL (0.1-1.0); MONO % 9.3 % (3.0-9.0); NEUT # 4.2 10*3/uL (2.3-7.9); NEUT % 56.3 % (47.0-73.0); PLATELET COUNT AUTOMATED 164 10*3/uL (130-400); RED BLOOD COUNT 3.97 10*6/uL (4.10-5.10); RED CELL DISTRI WIDTH 12.9 % (0-14.5); WHITE BLOOD COUNT 7.5 10*3/uL (4.8-10.8)
--- NOTE | 2020-06-15 07:44 | NUR ---
RESTING QUIETLY IN BED WITH EYES CLOSED. RESPS ARE EASY AND NON LABORED.
[2020-06-15 08:01] LABS: VITAMIN D, 25-HYDROXY 60.6 ng/mL (30-100)
--- NOTE | 2020-06-15 08:24 | NUR ---
ASSISTED WITH BEDPAN.
--- NOTE | 2020-06-15 15:00 | NUR ---
Time: 1499 A 79 year old FEMALE admitted to 5E under services of JORDAN WATSON DO. Pt. arrived via stretcher from ER. Chief complaint: UTI. DEBBIE VALLE D
[2020-06-15 15:29] VITALS: BP 134/96
--- NOTE | 2020-06-15 15:37 | NUR ---
Spoke with Bonnie Garcia Liayuriy for the [facility]. Pt. is a Current Resident at the [facility]. Plan is for Pt. to return if she is appropriate for Independent Living. Clinical Updates faxed to Bonnie [phone].
--- NOTE | 2020-06-15 16:00 | NUR ---
Left Message for Pt. daughter Antonieta Monroy to discuss discharge Planning. Provided with updates that Learning Developer had reached out to Bonnie at [facility] and Plan is for pt. to return to Independent Living if Appropriate. Provided with call back number. Will follow tommorow.
--- NOTE | 2020-06-15 16:09 | NUR ---
Feeder Loader visits this afternoon, in to talk to patient. Pt. resting. Patient lives at [facility] There are no steps in the home. Physician: RUPERTO CANTOR Pharmacy: [facility] Home health services: PROVIDED AT [facility] Patient's level of ADLs: INDEPENDENT Patient has working utilities: LIVES IN A INDEPENDENT LIVING FACILITY DME: NONE Follow-up physician's appointment after d/c: PER HOSPITALIST OFFICE Does patient want to access PORTAL?: DECLINES Discharge plan AT THIS POINT IS FOR PT. TO RETURN TO [facility]DEPENDENT LIVING LONG PHYSICIAN BELIEVES THAT SHE IS APPROPRIATE AND DOES NOT REQUIRE ASSISTED. TRACEY ROMERO L.P.N.
[2020-06-15] MEDS ORDERED: POTASSIUM CHLO10 ME4 PO (16:22)
[2020-06-15] MEDS ORDERED: NOVOLOG100 UNIT/1 SQ (16:23)
[2020-06-15 17:00] VITALS: BP 140/80
--- NOTE | 2020-06-15 18:32 | NUR ---
THIS NURSE WAS FEEDING THE PT. THE PT STARTED TALKING ABOUT THREE FAMILY MEMBERS COMMITTING SUICIDE. PT THEN SPOKE ABOUT ANOTHER PERSON (JESSICA) TELLING OTHERS OTHER INDIVIDUALS TO GO DOWN STAIRS AND SMASH THEIR FACE IN. PT STATES SHE HAS HAD SUICIDAL THOUGHTS BEFORE. PT ENDORSES VISUAL HALLUCINATIONS STATING SHE SEES SNAKES AND THE FBI TOLD HER AND A FRIEND TO GET ON THE BUS AND GO TO THE SNAKE PIT DOWN THE ROAD. MEMORY DEFICITS NOTED. PT REMEMBERED 2 OUT OF 3 WORDS. ALERT TO PERSON AND PLACE. PT STATED IT WAS J[birth year]Y [birth year], [id number]. PT STATES HER 2 WEEKS AGO THEN STATED HE IS NOW 74 YEARS OLD. UPPER EXTREMITY TREMORS NOTED WHILE FEEDING PT. PT STATED SHE DOES BETTER WITH FINGER FOODS.
[2020-06-15 20:00] VITALS: BP 133/51
[2020-06-16] VITALS: BP 125/73
--- NOTE | 2020-06-16 04:00 | NUR ---
PATIENT SLEEPING, NO SIGNS OF DISTRESS. RESPIRATIONS EASY, NON LABORED. BED IN LOWEST POSITION,CALL LIGHT WITHIN REACH. BED ALARM ON. WILL CONTINUE TO MONITOR.
[2020-06-16 06:47] LABS: BUN 12 mg/dl (7-24); CHLORIDE 106 mmol/L (98-107); CREATININE 0.72 mg/dL (0.55-1.02); POTASSIUM 3.9 mmol/L (3.5-5.1); SODIUM 137 mmol/L (136-145)
--- NOTE | 2020-06-16 07:46 | NUR ---
OT NOTE Occupational therapy order and nursing screen received. Will follow up with patient for completion of an OT evaluation. Thank you. Kira Sosa, OTR/L
[2020-06-16 08:00] VITALS: BP 187/83
--- NOTE | 2020-06-16 08:25 | NUR ---
PT RESTING IN BED./ NO DISTRESS NOTED. SEE SHIFT ASSESSMENT. WILL MONITOR
--- NOTE | 2020-06-16 08:45 | NUR ---
Occupational Therapy evaluation completed on FIVE with full evaluation to follow. Recommend occupational therapy per plan of care and SNF upon discharge. Thank you for this referral. Kira Sosa OTR/L
--- NOTE | 2020-06-16 09:02 | NUR ---
PHYSICAL THERAPY Physical Therapy evaluation completed on 5E with full evaluation to follow. Low complexity skilled PT evaluation per chart review and evaluation, [id number]. Recommend physical therapy per plan of care and SNF upon discharge. Thank you for this referral. Jennifer Varma,PT,DPT
[2020-06-16 12:00] VITALS: BP 171/67
--- NOTE | 2020-06-16 13:05 | NUR ---
Reached out to Pt. daughter Antonieta to discuss discharge Planning. She is currently on a Zoom Call and is unable to talk. Will call later.
[2020-06-16 16:00] VITALS: BP 128/73
--- NOTE | 2020-06-16 16:09 | NUR ---
Referral to [facility] due to SNF Need and Pt. will remain in [facility]. Awaiting Acceptance/Denial. Daughter did not return call today. Will follow with her in a.m.
[2020-06-16 20:00] VITALS: BP 132/90
[2020-06-17] VITALS: BP 161/60
--- NOTE | 2020-06-17 04:00 | NUR ---
PATIENT SLEEPING, NO SIGNS OF DISTRESS. RESPIRATIONS EASY, NON LABORED. BED IN LOWEST POSITION,CALL LIGHT WITHIN REACH. BED ALARM ON. WILL CONTINUE TO MONITOR.
--- NOTE | 2020-06-17 07:59 | NUR ---
PHYSICAL THERAPY Screen and PT eval received pt has been evaluated and is on caseload thank you Ludivina Noel PT
[2020-06-17 08:00] VITALS: BP 155/75
--- NOTE | 2020-06-17 08:21 | NUR ---
PT RESTING IN BED/ NO DISTRESS NOTED. WILL MONITOR
--- NOTE | 2020-06-17 09:26 | NUR ---
Spoke with Pt. daughter Nataliia this ajohn Nataliia Requested Referral to [facility]. They are familiar with Pt. and She has previously been there for Skilled.
--- NOTE | 2020-06-17 09:30 | NUR ---
OT NOTE Pt was seen this A.M. 1:1 for 15 minute OT session. Upon arrival pt was sitting upright on the EOB. Pt identified by name and and had no complaints at this time. Pt completed sit to stand transfer from bed level with CGA and use of w/w for UE support. Functional mobility completed to the bathroom with CGA and use of w/w. Throughout pt presented with poor walker safety increasing risk of falls. Pt was educated on safety concerns and safety with turning, pt continued to present with poor carry over. Pt transferred on to the standard commode with Racquel for assist with safety with alignment. She then transferred off standard commode with CGA and use of w/w. Functional mobility completed back to the recliner with CGA and use of w/w. Pt was left sitting upright in the recliner with call light in hand, tray table in place, and body alarm activated for safety. Continue with rec D/ Cplan to SNF. KRISTINA Barger
--- NOTE | 2020-06-17 09:58 | NUR ---
IV started left antecubital with #22 angiocath after 1 attempts. The IV site was prepped with Chloraprep. NORMAL SALINE lock attached. Sterile dressing applied. Patient tolerated precedure well. Procedure performed according to [facility] policy & procedure. FRANCISCO COCHRAN
--- NOTE | 2020-06-17 10:25 | NUR ---
PHYSICAL THERAPY Patient presented to therapy in supine in bed with bed alarm on and has no spO2, no IVs, and no catheter. Patient gives informed consent for treatment. Patient was identified by name and on wristband. Patient supine > sitting on EOB with SBA. Patient sat on EOB with SBA. Patient STS < > EOB with CGA. Patient ambulated with Walker and CGA for 15' x 1 and sat in low chair with CGA. STS out of low chair with CGA. Patient ambulated with the Walker and CGA - SBA for another 50' x 1 with no LOB and verbal cues for upright posture, locking knees into extension and pushiong down on walker with bilateral LEs. Patient sat into bedside chair with SBA. Patient was left in bedside chair with chair alarm on, call light within reach, and LEs in low position. Patient was 1:1 with this BEST WORKER for 22 minutes total. CAROLINE RASCON BEST WORKER
--- NOTE | 2020-06-17 11:15 | NUR ---
Negative Covid Swab Results faxed to [facility]. Precert started.
--- NOTE | 2020-06-17 11:39 | NUR ---
Nutritional Support Services Note: Appetite is good for meals. She is eating 100% of all meals. 1800cal diet as ordered. No Nutrition intervention needed at this time. Will follow. Luciana Urias Rdn Ld
[2020-06-17 12:00] VITALS: BP 135/50
[2020-06-17 16:00] VITALS: BP 143/60
[2020-06-17 20:00] VITALS: BP 124/54
--- NOTE | 2020-06-17 21:20 | NUR ---
PT RESTING IN BED WITH EYES CLOSED. RESP-EASY AND REGULAR. BSG-243, SEE EMAR. TOLERATED ROUTINE MED WITH NO PROBLEM. CALL LIGHT IN REACH.
[2020-06-18] VITALS: BP 128/51
--- NOTE | 2020-06-18 00:15 | NUR ---
PT SLEEPING IN BED, AWAKENS EASILY. RESP-EASY AND REGULAR. CALL LIGHT IN REACH. BED ALARM ON. SEE SHIFT ASSESSMENT.
--- NOTE | 2020-06-18 05:25 | NUR ---
PT TOLERATED ROUTINE MED WITH NO PROBLEM. BSG-164, SEE EMAR. CALL LIGHT IN REACH. BED ALARM ON.
[2020-06-18 06:39] LABS: BASO % 0.3 % (0.0-1.0); EOS # 0.3 10*3/uL (0.0-0.4); HEMATOCRIT 36.7 % (37.0-47.0); LYMPH # 1.9 10*3/uL (1.3-4.4); LYMPH % 19.2 % (27.0-41.0); MEAN CELL VOLUME 90.4 fl (81.0-99.0); MEAN CORPUSCULAR HGB 28.8 pg (27.0-31.0); MEAN CORPUSCULAR HGB CONC 31.9 g/dl (33.0-37.0); MEAN PLATELET VOLUME 10.6 fl (9.6-12.3); MONO # 0.9 10*3/uL (0.1-1.0); MONO % 8.6 % (3.0-9.0); NEUT # 6.9 10*3/uL (2.3-7.9); NEUT % 68.2 % (47.0-73.0); PLATELET COUNT AUTOMATED 226 10*3/uL (130-400); RED BLOOD COUNT 4.06 10*6/uL (4.10-5.10); WHITE BLOOD COUNT 10.1 10*3/uL (4.8-10.8)
[2020-06-18 06:52] LABS: CREATININE 0.85 mg/dL (0.55-1.02)
[2020-06-18 08:00] VITALS: BP 112/65
--- NOTE | 2020-06-18 09:13 | NUR ---
OT NOTE Patient was seen this date for 21 minutes of 1:1 OT treatment. [facility] present for observation only. The patient was seated in the recliner chair upon arrival with her alarm on for safety. She was agreeable to OT treatment and was identified by name/. The patient performed a CGA sit/stand transfer from the chair with tactile cues for safe hand placement on the WW. She performed CGA functional mobility into the bathroom with [facility]- WW navigation. Patient completed a toilet transfer with CGA and completed toileting hygiene and clothing management with CGA in stance. She required verbal and tactile cues for safety with WW at the sink with good carryover. Patient stood at the sink with CGA to wash her B/L hands. She completed functional mobility to and from the hallway with CGA. Patient don/doff B/L socks with Min A to thread over her right toes using a tailor sit. Patient concluded treatment seated in the recliner chair, all needs within reach, call ortez in hand, and alarm on for safety. Continue with POC as able recommending SNF at discharge. Kira Sosa, OTR/L
--- NOTE | 2020-06-18 09:38 | NUR ---
Call Placed to Hospitalist Phone. Advised Physician that Precert had been obtained and Pt. is accepted at [facility] and can discharge today if Medically Stable.
--- NOTE | 2020-06-18 09:56 | NUR ---
PHYSICAL THERAPY Patient presented to therapy in sititng in bedside chair with LEs in low position and body aalrm attached to patient. Patient gives informed consent for treatment. Patient was identified by name and on wristband. Patient has no complaints. Patient performed STS < > bedside chair with CGA. Patient ambulated with Wh Walker and CGA for 24' x 1 to low chair where she sat with CGA. Patient STS > low chair with CGA. Patient ambulated another 56' x 1 with Wh Walker with CGA with mask on WITH NO LOB AND NO SOB. Patient ambulated another 50' x 1 with CGA using Wh Walker again with no LOB or SOB. Patient sat into bedside chair with verbal cues for putting hands back on armrests of chair and CGA. Debbie net sat in bedside chair and performed bilateral LE ther ex 2 x 10 reps each in all planes includign LAQs, marches and heel/toe raises of movement for strengthening the LEs in order to improve patient's functional mobility and strength. Patient was left in bedside chair with call light within reach, chair alarm attached to patient and LEs in low position. Patient was 1:1 with this MACHINE HEEL SPRAYER for 20 minutes total. CAROLINE RASCON MACHINE HEEL SPRAYER
[2020-06-18] MEDS ORDERED: CIPROFLOXACIN500 M4 PO (10:32)
--- NOTE | 2020-06-18 10:53 | NUR ---
Ken obtained this a.m. for [facility]. Transportation arranged with [facility] Van to transport with hog room supervisor between 11:00 and 11:30. Notified Sera Luncheonette Manager on 5E. Spoke with Pt. daughter Nataliia and Notified of discharge today. [facility] Hospital Exemption completed online in [facility].
--- NOTE | 2020-06-18 11:00 | NUR ---
Notified Bonnie at [facility].
--- NOTE | 2020-06-18 11:46 | NUR ---
Discharge instructions reviewed with patient/family. Patient receptive and verbalizes understanding. Follow-up care arranged. Written instructions given to patient/family. CHAPO ROWE
--- NOTE | 2020-06-18 15:47 | NUR ---
PHYSICAL THERAPY CO-SIGN I approve of the Physical Therapy notes written above. Ludivina Noel PT
--- NOTE | 2020-06-18 15:53 | NUR ---
OCCUPATIONAL THERAPY CO-SIGN I approve of the Occupational Therapy notes written above. EVARISTO WHITE, OTR/L
== END 2020-06-18 11:46 | disposition other institution (70) | DRG 689 ==
LOC: ED 20:26 → 5E 06-15 01:21 → EDHOLD 06-15 01:21 → 5E 06-15 13:37
PROVIDERS: Emergency Medicine; Internal Medicine; ADMIT Internal Medicine; ATTEND Internal Medicine
DX: N30.00 Acute cystitis without hematuria (principal); G93.41 Metabolic encephalopathy; E87.1 Hypo-osmolality and hyponatremia; E44.0 Moderate protein-calorie malnutrition; E87.2 Acidosis; D64.9 Anemia, unspecified; F20.9 Schizophrenia, unspecified; F41.9 Anxiety disorder, unspecified; F31.9 Bipolar disorder, unspecified; E11.65 Type 2 diabetes mellitus with hyperglycemia; J32.9 Chronic sinusitis, unspecified; E78.5 Hyperlipidemia, unspecified; E11.21 Type 2 diabetes mellitus with diabetic nephropathy; N18.31 Chronic kidney disease, stage 3a; I12.9 Hypertensive chronic kidney disease with stage 1 through stage 4 chronic kidney disease, or unspecified chronic kidney disease; E55.9 Vitamin D deficiency, unspecified; E53.8 Deficiency of other specified B group vitamins; G20 Parkinson's disease; B95.2 Enterococcus as the cause of diseases classified elsewhere; F03.90 Unspecified dementia, unspecified severity, without behavioral disturbance, psychotic disturbance, mood disturbance, and anxiety; Z68.26 Body mass index [BMI] 26.0-26.9, adult; Z90.710 Acquired absence of both cervix and uterus; Z90.5 Acquired absence of kidney; Z82.0 Family history of epilepsy and other diseases of the nervous system; Z79.4 Long term (current) use of insulin; Z79.899 Other long term (current) drug therapy; Z20.828 Contact with and (suspected) exposure to other viral communicable diseases

== ENCOUNTER 2020-07-25 21:18 | Emergency (ER) | payer MEDICARE ==
[~2020-07-25] VITALS: Ht 170.1 cm; Wt 74.0 kg
[~2020-07-25 21:18] MED LIST changes: +ATORVASTATIN CA20 M1 PO; +BASAG SOL SC; +CIPROFLOXACIN500 M4 PO; +JANUVIA100 MG PO; +MAGNESIUM250 M2 PO; +METOPROLOL25 MG PO; +NOVOLOG FL100 UNIT/2 SC; +NOVOLOG100 UNIT/1 SQ; +OMEPRAZOLE MAGN20 MG PO; +POTASSIUM CHLO10 ME4 PO; +POTASSIUM CHLO20 ME4 PO; +RIVASTIGMINE TAR6 M1 PO; +Sinemet Cr 50/21 TAB PO; +THIORIDAZINE HC10 MG PO; +VITAMIN B121000 MC1 PO; +VITAMIN D PO
[2020-07-25 22:06] LABS: BASO % 0.2 % (0.0-1.0); EOS % 0.2 % (1.0-4.0); HEMATOCRIT 38.1 % (37.0-47.0); LYMPH # 1.2 10*3/uL (1.3-4.4); MEAN CELL VOLUME 88.8 fl (81.0-99.0); MEAN CORPUSCULAR HGB 28.4 pg (27.0-31.0); MEAN PLATELET VOLUME 10.7 fl (9.6-12.3); MONO # 0.6 10*3/uL (0.1-1.0); MONO % 4.9 % (3.0-9.0); NEUT # 10.5 10*3/uL (2.3-7.9); NEUT % 84.5 % (47.0-73.0); PLATELET COUNT AUTOMATED 227 10*3/uL (130-400); RED BLOOD COUNT 4.29 10*6/uL (4.10-5.10); RED CELL DISTRI WIDTH 12.6 % (0-14.5); WHITE BLOOD COUNT 12.4 10*3/uL (4.8-10.8)
[2020-07-25 22:22] LABS: ALBUMIN 3.3 gm/dl (3.1-4.5); ALKALINE PHOSPHATASE 112 U/L (45-117); BUN 14 mg/dl (7-24); CHLORIDE 101 mmol/L (98-107); CREATININE 0.84 mg/dL (0.55-1.02); LIPASE 69 U/L (73-393); POTASSIUM 3.9 mmol/L (3.5-5.1); SGOT/AST 20 IU/L (3-35); SGPT/ALT 10 U/L (12-78); SODIUM 131 mmol/L (136-145); TOTAL PROTEIN 7.7 gm/dL (6.4-8.2)
[2020-07-25 22:30] LABS: BILIRUBIN Negative (Negative); BLOOD Negative (Negative); CLARITY Clear (Clear); COLOR Yellow (Yellow); GLUCOSE Trace (Negative); KETONE Trace (Negative); LEUKO ESTERASE 1+ (Negative); NITRITE Negative (Negative); UROBILINOGEN 0.2 E.U./dl (0.0-1.0)
[2020-07-25 23:14] LABS: BACTERIA 1+; WBC 16-20 wbc/hpf (0-5)
[2020-07-26] MEDS ORDERED: AUGMENTIN 875875 MG PO (06:49)
== END 2020-07-26 06:54 | disposition home or self-care (01) ==
LOC: ED 21:18
PROVIDERS: Emergency Medicine
DX: N39.0 Urinary tract infection, site not specified (principal); F41.9 Anxiety disorder, unspecified; F03.90 Unspecified dementia, unspecified severity, without behavioral disturbance, psychotic disturbance, mood disturbance, and anxiety; E11.9 Type 2 diabetes mellitus without complications; F31.9 Bipolar disorder, unspecified; I10 Essential (primary) hypertension; E78.5 Hyperlipidemia, unspecified; Z79.2 Long term (current) use of antibiotics; Z79.899 Other long term (current) drug therapy; Z79.4 Long term (current) use of insulin; Z90.711 Acquired absence of uterus with remaining cervical stump